=== PATIENT | male | born 1960 | race African-American/Black ===

== ENCOUNTER 2017-03-12 20:43 | Inpatient (IN) | payer OTHER ==
[2017-03-12 21:51] VITALS: BMI 23.6
--- NOTE | 2017-03-12 22:43 | HP ---
COWS - Scale Resting Pulse: 0= [place] 80 or Below Sweatin=Flushed/Facial Moisture Restless Observation: 5= Unable to Sit Still Pupil Size: 1= Pupils >than Normal Bone or Joint Aches: 4=Acute Joint/Muscle Pain Runny Nose/ Eye Tearin= Runny Nose/Eyes GI Upset > 30mins: 2= Nausea/Diarrhea Tremor Observation: 2= Slight Tremor Visible Yawning Observation: 1= 1-2x During Session Anxiety or Irritability: 2=Irritable/Anxious Goose Flesh Skin: 0=Smooth Skin COWS Score: 21 Admission ROS S - [facility] Chief Complaint: SEEKING DETOX TXMENT FOR HEROIN ADDICTION Allergies/Adverse Reactions: Allergies Allergy/AdvReac Type Severity Reaction Status Date / Time No Known Allergies Allergy Verified 03/12/17 22:37 History of Present Illness: 57 Y.O. MALE WITH OPIOID DEPENDENCE ADMITTED TO DETOX TXMENT. CLIENT STATES LAST HERE 20 YEARS AGO. LAST SUBSTANCE TXMENT DECADES AGO. SELF REFERRED. REPORTS LONGEST CLEAN TIME 15 YEARS RELAPSING 1 YEAR AGO. Exam Limitations: No Limitations - Ebola screening Have you traveled outside of the country in the last 21 days: No (n) Have you had contact with anyone from an Ebola affected area: No Have you been sick,other than usual withdrawal symptoms: No Do you have a fever: No - Review of Systems Constitutional: Chills, Loss of Appetite, Malaise, Night Sweats, Changes in sleep EENT: reports: Dental Problems (MISSING TEETH), Other (RINORRHEA) Respiratory: reports: No Symptoms reported Cardiac: reports: No Symptoms Reported GI: reports: Diarrhea, Abdominal cramping : reports: No Symptoms Reported Musculoskeletal: reports: Back Pain, Joint Pain Integumentary: reports: No Symptoms Reported Neuro: reports: No Symptoms reported Endocrine: reports: No Symptoms Reported Hematology: reports: No Symptoms Reported Psychiatric: reports: Anxious Other Systems: Reviewed and Negative Patient History - Patient Medical History Hx Anemia: No Hx Asthma: No Hx Chronic Obstructive Pulmonary Disease (COPD): No Hx Cancer: No Hx Cardiac Disorders: Yes (CARDIAC STENTS) Hx Congestive Heart Failure: No Hx Hypertension: No Hx Hypercholesterolemia: No Hx Pacemaker: No HX Cerebrovascular Accident: No Hx Seizures: No Hx Dementia: No Hx Diabetes: No Hx Gastrointestinal Disorders: No Hx Liver Disease: No Hx Genitourinary Disorders: No Hx Sexually Transmitted Disorders: No Hx Renal Disease (ESRD): No Hx Thyroid Disease: No Hx Human Immunodeficiency Virus (HIV): No Hx Hepatitis C: No Hx Depression: Yes (FEELS DEPRESSED) Hx Suicide Attempt: No Hx Bipolar Disorder: No Hx Schizophrenia: No Other Medical History: DENIES - Patient Surgical History Past Surgical History: Yes Hx Cardiac Surgery: Yes (CARDIAC STENTS) Hx Orthopedic Surgery: Yes (R HIP REPLACEMENT) Anesthesia Reaction: No - PPD History Previous Implant?: Yes Documented Results: Negative w/o proof Implanted On Prior [facility] Admission?: No PPD to be Administered?: Yes - Smoking Cessation Smoking history: Current every day smoker Have you smoked in the past 12 months: Yes Aproximately how many cigarettes per day: 20 Cigars Per Day: 0 Hx Chewing Tobacco Use: No Initiated information on smoking cessation: Yes 'Breaking Loose' booklet given: 03/12/17 - Substance & Tx. History Hx Alcohol Use: No Hx Substance Use: Yes Substance Use Type: Heroin Hx Substance Use Treatment: Yes ([facility]) - Substances Abused HEROIN Route: Injection Frequency: Daily Amount used: 7 BAGS Age of first use: 57 (4 MONTHS AGO) Date of Last Use: 03/10/17 PCP Route: Smoking Frequency: 1-3 times last 30 days Amount used: 1 BAG Age of first use: 29 Date of Last Use: 03/05/17 Family Disease History - Family Disease History Family History: Denies Admission Physical Exam [facility] - Vital Signs Vital Signs: Vital Signs - 24 hr 03/12/17 21:49 Temperature 98.1 F Pulse Rate 79 Respiratory 18 Rate Blood Pressure 142/77 - Physical General Appearance: Yes: Appropriately Dressed, Mild Distress, Tremorous, Anxious HEENTM: Yes: EOMI, Normocephalic, TROY, Pharynx Normal, Rhinorrhea Respiratory: Yes: Chest Non-Tender, Lungs Clear, Normal Breath Sounds, No Respiratory Distress, No Accessory Muscle Use Neck: Yes: No masses,lesions,Nodules, Supple, Trachea in good position Breast: Yes: Breast Exam Deferred Cardiology: Yes: Regular Rhythm, Regular Rate, S1, S2 Abdominal: Yes: Normal Bowel Sounds, Non Tender, Soft Genitourinary: Yes: Within Normal Limits Back: Yes: Normal Inspection Musculoskeletal: Yes: full range of Motion, Gait Steady Extremities: Yes: Normal Capillary Refill, Normal Range of Motion, Non-Tender, Tremors Neurological: Yes: injection molding machine setter II-XII NML intact, Fully Oriented, Alert, Motor Strength 5/5 Integumentary: Yes: Normal Color, Warm, Moist Lymphatic: Yes: Within Normal Limits - Diagnostic (1) Opioid dependence with withdrawal Current Visit: Yes Status: Chronic (2) Nicotine dependence Current Visit: Yes Status: Chronic Qualifiers: Nicotine product type: cigarettes Substance use status: uncomplicated Qualified Code(s): F17.210 - Nicotine dependence, cigarettes, uncomplicated Cleared for Admission [facility] - Detox or Rehab [facility] Level of Care: Medically Managed Detox Regimen/Protocol: Methadone [facility] Breath Alcohol Content Breath Alcohol Content: 0 Urine Drug Screen - Results Drug Screen Negative: No Urine Drug Screen Results: OPI-Opiates, PCP-Phencyclidine
[2017-03-12] MEDS ORDERED: MAGNESIUM HYDROX 2400MG/30ML ORAL SUSPENSION 30 ML CUP PO PRN (22:52)
[2017-03-12] MEDS ORDERED: MAG HYDROX/AL HYDROX/SIMETH 30 ML UNIT-DOSE CUP PO PRN (22:52)
[2017-03-12] MEDS ORDERED: IBUPROFEN 400 MG TABLET (FP) PO PRN (22:52)
[2017-03-12] MEDS ORDERED: MAGNESIUM CITRATE 300 ML BOTTLE PO PRN (22:52)
[2017-03-12] MEDS ORDERED: NICOTINE POLACRILEX 2 MG GUM BC PRN (22:52)
[2017-03-12] MEDS ORDERED: P-EPHED 60MG/TRIPROLIDI 2.5MG TABLET PO PRN (22:52)
[2017-03-12] MEDS ORDERED: LOPERAMIDE HCL 2 MG CAPSULE PO PRN (22:52)
[2017-03-12] MEDS ORDERED: diphenhydrAMINE HCL 50 MG CAPSULE PO PRN (22:52)
[2017-03-12] MEDS ORDERED: ACETAMINOPHEN 325 MG TABLET (FP) PO PRN (22:52)
[2017-03-12] MEDS ORDERED: MENTHOL/PHENOL 1 EACH UD MM PRN (22:52)
[2017-03-12] MEDS ORDERED: guaiFENesin/D-METHORPHAN HB 10 ML UNIT-DOSE CUPS PO PRN (22:52)
[2017-03-12] MEDS ORDERED: METHADONE HCL 10 MG TABLET (FOR DETOX USE ONLY) PO ONE ×2 (22:52→23:00)
[2017-03-12] MEDS: diazePAM 5 MG TABLET PO PRN (23:33)
[2017-03-13] MEDS: diazePAM 5 MG TABLET PO PRN ×3 (05:27→15:33)
[2017-03-13] MEDS ORDERED: ASPIRIN COATED 81 MG TABLET.EC PO SCH (10:00)
[2017-03-13] MEDS ORDERED: PRENATAL VITAMINS W/ FOLIC ACID TABLET (FP) PO SCH (10:00)
[2017-03-13] MEDS ORDERED: NICOTINE 21 MG/24 HOURS TOPICAL PATCH TD SCH (10:00)
[2017-03-13] MEDS ORDERED: METHADONE HCL 10 MG TABLET (FOR DETOX USE ONLY) PO ONE (10:00)
[2017-03-13 10:17] LABS: MCH 29.4 pg (25.7-33.7); MCHC 33.2 g/dl (32.0-35.9); MEAN CELL VOLUME 88.4 fl (80-96); MEAN PLT VOLUME 9.3 fl (7.5-11.1); PLATELET COUNT 242 K/MM3 (134-434); RDW 15.2 % (11.9-15.9); WHITE BLOOD COUNT 6.2 K/mm3 (4.0-10.0)
[2017-03-13 10:30] LABS: ALBUMIN 2.9 g/dl (3.4-5.0); ALK PHOS 72 U/L (45-117); ANION GAP 6 (8-16); BILIRUBIN,TOTAL 0.2 mg/dL (0.2-1.0); CALCIUM 8.7 mg/dL (8.5-10.1); CO2 28 mmol/L (21-32); COCKROFT - GAULT 99.87; CREATININE 0.9 mg/dL (0.7-1.3); GLUCOSE,RANDOM 95 mg/dL (74-106); SGOT/AST 34 U/L (15-37); SGPT/ALT 29 U/L (12-78); TOT PROT 5.8 g/dl (6.4-8.2)
--- NOTE | 2017-03-13 11:59 | EKG ---
Test Reason : Blood Pressure : / mmHG Vent. Rate : 061 BPM Atrial Rate : 061 BPM P-R Int : 128 ms QRS Dur : 102 ms QT Int : 410 ms P-R-T Axes : 047 -43 065 degrees QTc Int : 412 ms NORMAL SINUS RHYTHM LEFT AXIS DEVIATION ABNORMAL ECG NO PREVIOUS ECGS AVAILABLE Confirmed by ELLEN CARO, ROD ([id number]) on 03/13/2017 11:58:30 AM Referred By: Confirmed By:ROD HUGHES MD
--- NOTE | 2017-03-13 12:14 | PN ---
S COWS - Scale Resting Pulse: 0= [place] 80 or Below Sweatin= Chills/Flushing Restless Observation: 3= Extraneous Movement Pupil Size: 2= Moderately Dilated Bone or Joint Aches: 4=Acute Joint/Muscle Pain Runny Nose/ Eye Tearin= Nasal Congestion GI Upset > 30mins: 1= Stomach Cramp Tremor Observation of Outstretched Hands: 1= Tremor [place], Not Seen Yawning Observation: 1= 1-2x During Session Anxiety or Irritability: 2=Irritable/Anxious Goose Flesh Skin: 0=Smooth Skin COWS Score: 16 S Progress Note (SOAP) Subjective: ANXIETY,SWEATS,INTERMITTENT SLEEP. Objective: 03/13/17 12:14 Vital Signs Temperature 97.0 F L 03/13/17 09:35 Pulse Rate 71 03/13/17 09:35 Respiratory Rate 18 03/13/17 09:35 Blood Pressure 124/79 03/13/17 09:35 O2 Sat by Pulse Oximetry (%) Laboratory Last Values WBC 6.2 K/mm3 (4.0-10.0) 03/13/17 07:00 RBC 3.94 M/mm3 (4.00-5.60) L 03/13/17 07:00 Hgb 11.6 GM/dL (11.7-16.9) L 03/13/17 07:00 Hct 34.9 % (35.4-49) L 03/13/17 07:00 MCV 88.4 fl (80-96) 03/13/17 07:00 MCHC 33.2 g/dl (32.0-35.9) 03/13/17 07:00 RDW 15.2 % (11.9-15.9) 03/13/17 07:00 Plt Count 242 K/MM3 (134-434) 03/13/17 07:00 MPV 9.3 fl (7.5-11.1) 03/13/17 07:00 Sodium 142 mmol/L (136-145) 03/13/17 07:00 Potassium 4.0 mmol/L (3.5-5.1) 03/13/17 07:00 Chloride 108 mmol/L (98-107) H 03/13/17 07:00 Carbon Dioxide 28 mmol/L (21-32) 03/13/17 07:00 Anion Gap 6 (8-16) L 03/13/17 07:00 BUN 17 mg/dL (7-18) 03/13/17 07:00 Creatinine 0.9 mg/dL (0.7-1.3) 03/13/17 07:00 Creat Clearance w eGFR > 60 (>60) 03/13/17 07:00 Random Glucose 95 mg/dL (74-106) 03/13/17 07:00 Calcium 8.7 mg/dL (8.5-10.1) 03/13/17 07:00 Total Bilirubin 0.2 mg/dL (0.2-1.0) 03/13/17 07:00 AST 34 U/L (15-37) 03/13/17 07:00 ALT 29 U/L (12-78) 03/13/17 07:00 Alkaline Phosphatase 72 U/L (45-117) 03/13/17 07:00 Total Protein 5.8 g/dl (6.4-8.2) L 03/13/17 07:00 Albumin 2.9 g/dl (3.4-5.0) L 03/13/17 07:00 Assessment: 03/13/17 12:14 WITHDRAWAL SX Plan: CONTINUE DETOX
--- NOTE | 2017-03-13 12:26 | CONSULT ---
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 Substance Abuse History: - Smoking Cessation. Smoking history: Current every day smoker. Have you smoked in the past 12 months: Yes. Aproximately how many cigarettes per day: 20. Cigars Per Day: 0. Hx Chewing Tobacco Use: No. Initiated information on smoking cessation: Yes. 'Breaking Loose' booklet given : 03/12/17. - Substance & Tx. History. Hx Alcohol Use: No. Hx Substance Use: Yes. Substance Use Type: Heroin. Hx Substance Use Treatment: Yes ([facility]). - Substances Abused. HEROIN. Route: Injection. Frequency: Daily. Amount used: 7 BAGS. Age of first use: 57 (4 MONTHS AGO). Date of Last Use: . PCP. Route: Smoking. Frequency: 1-3 times last 30 days. Amount used: 1 BAG. Age of first use: 29. Date of Last Use: 03/05/17. Confirmed by patient. Medical History: Arthritis,right hip replacement and a history of cardiac stents. Psychiatric History: Patient denies. Physical/Sexual Abuse/Trauma History: Patient denies. Additional Comment: Urine Drug Screen Results: OPI-Opiates, PCP- Phencyclidine.Noted. Mental Status Exam - Mental Status Exam Alert and Oriented to: Time, Place, Person Cognitive Function: Good Patient Appearance: Well Groomed Mood: Withdrawn Affect: Normal Range Patient Behavior: Fatigued, Cooperative Speech Pattern: Clear Voice Loudness: Normal Thought Process: Goal Oriented Thought Disorder: Not Present Hallucinations: Denies Suicidal Ideation: Denies Homicidal Ideation: Denies Insight/Judgement: Poor Sleep: Poorly, Difficulty falling asleep Appetite: Good Muscle strength/Tone: Normal Gait/Station: Normal Psychiatric Findings - Problem List ([place] 1, 2,3) (1) Opioid dependence with withdrawal Current Visit: Yes Status: Chronic (2) Nicotine dependence Current Visit: Yes Status: Acute Qualifiers: Nicotine product type: cigarettes Substance use status: uncomplicated Qualified Code(s): F17.210 - Nicotine dependence, cigarettes, uncomplicated (3) PCP (phencyclidine) abuse Current Visit: Yes Status: Acute (4) Insomnia Current Visit: Yes Status: Acute - Initial Treatment Plan Initial Treatment Plan: Psychoeducation.Detoxification.Insomnia is addressed with benadryl 50 mg po hs (patient's request).Side effects/benefits discussed with patient.He agrees with this careplan.Observation.
[2017-03-13 17:42] VITALS: BP 108/60; PULSE 66; TEMP 97.6
[2017-03-13 18:20] LABS: URINE APPEARANCE CLEAR; URINE BILIRUBIN NEGATIVE (NEGATIVE); URINE BLOOD NEGATIVE (NEGATIVE); URINE COLOR YELLOW; URINE GLUCOSE (UA) NEGATIVE (NEGATIVE); URINE KETONE NEGATIVE (NEGATIVE); URINE LEUK ESTERASE NEGATIVE (NEGATIVE); URINE NITRITE NEGATIVE (NEGATIVE); URINE PROTEIN NEGATIVE (NEGATIVE); URINE UROBILINOGEN NEGATIVE E.U./dl (0.2-1.0)
[2017-03-13] MEDS ORDERED: THIAMINE HCL 100 MG TABLET (FP) PO SCH (22:00)
--- NOTE | 2017-03-14 00:15 | DS ---
[facility] Detox Discharge Summary Admission Date: 03/12/17 Discharge Date: 03/13/17 - History Present History: Opioid Dependence Pertinent Past History: PATIENT INSISTS TO LEAVE THE UNIT REFUSES WAIT FACE TO FACE WITH PROVIDER - Physical Exam Results Vital Signs: Vital Signs Temperature 97.6 F 03/13/17 17:41 Pulse Rate 66 03/13/17 17:41 Respiratory Rate 18 03/13/17 17:41 Blood Pressure 108/60 03/13/17 17:41 O2 Sat by Pulse Oximetry (%) Pertinent Admission Physical Exam Findings: withdrawal sx Laboratory Last Values WBC 6.2 K/mm3 (4.0-10.0) 03/13/17 07:00 RBC 3.94 M/mm3 (4.00-5.60) L 03/13/17 07:00 Hgb 11.6 GM/dL (11.7-16.9) L 03/13/17 07:00 Hct 34.9 % (35.4-49) L 03/13/17 07:00 MCV 88.4 fl (80-96) 03/13/17 07:00 MCHC 33.2 g/dl (32.0-35.9) 03/13/17 07:00 RDW 15.2 % (11.9-15.9) 03/13/17 07:00 Plt Count 242 K/MM3 (134-434) 03/13/17 07:00 MPV 9.3 fl (7.5-11.1) 03/13/17 07:00 Sodium 142 mmol/L (136-145) 03/13/17 07:00 Potassium 4.0 mmol/L (3.5-5.1) 03/13/17 07:00 Chloride 108 mmol/L (98-107) H 03/13/17 07:00 Carbon Dioxide 28 mmol/L (21-32) 03/13/17 07:00 Anion Gap 6 (8-16) L 03/13/17 07:00 BUN 17 mg/dL (7-18) 03/13/17 07:00 Creatinine 0.9 mg/dL (0.7-1.3) 03/13/17 07:00 Creat Clearance w eGFR > 60 (>60) 03/13/17 07:00 Random Glucose 95 mg/dL (74-106) 03/13/17 07:00 Calcium 8.7 mg/dL (8.5-10.1) 03/13/17 07:00 Total Bilirubin 0.2 mg/dL (0.2-1.0) 03/13/17 07:00 AST 34 U/L (15-37) 03/13/17 07:00 ALT 29 U/L (12-78) 03/13/17 07:00 Alkaline Phosphatase 72 U/L (45-117) 03/13/17 07:00 Total Protein 5.8 g/dl (6.4-8.2) L 03/13/17 07:00 Albumin 2.9 g/dl (3.4-5.0) L 03/13/17 07:00 Urine Color Yellow 03/13/17 13:00 Urine Appearance Clear 03/13/17 13:00 Urine pH 6.0 (5.0-8.0) 03/13/17 13:00 Ur Specific [place] 1.020 (1.005-1.025) 03/13/17 13:00 Urine Protein Negative (NEGATIVE) 03/13/17 13:00 Urine Glucose (UA) Negative (NEGATIVE) 03/13/17 13:00 Urine Ketones Negative (NEGATIVE) 03/13/17 13:00 Urine Blood Negative (NEGATIVE) 03/13/17 13:00 Urine Nitrite Negative (NEGATIVE) 03/13/17 13:00 Urine Bilirubin Negative (NEGATIVE) 03/13/17 13:00 Urine Urobilinogen Negative E.U./dl (0.2-1.0) 03/13/17 13:00 Ur Leukocyte Esterase Negative (NEGATIVE) 03/13/17 13:00 RPR Titer Nonreactive (NONREACTIVE) 03/13/17 07:00 lab noted - Treatment Hospital Course: Detox Protocol Followed, Responded well - Medication Discharge Medications: Ambulatory Orders Aspirin [ASA -] 81 mg PO DAILY 03/12/17 - Diagnosis (1) Opioid dependence with withdrawal Status: Acute - AMA Did Patient Leave Against Medical Advice: Yes
[2017-03-14] MEDS ORDERED: METHADONE HCL 5 MG TABLET (FOR DETOX USE ONLY) PO ONE (10:00)
[2017-03-15] MEDS ORDERED: METHADONE HCL 5 MG TABLET (FOR DETOX USE ONLY) PO ONE (10:00)
[2017-03-16] MEDS ORDERED: METHADONE HCL 10 MG TABLET (FOR DETOX USE ONLY) PO ONE (10:00)
[2017-03-17] MEDS ORDERED: METHADONE HCL 5 MG TABLET (FOR DETOX USE ONLY) PO ONE (06:00)
== END 2017-03-13 18:28 | disposition left against medical advice (07) | DRG 770 ==
LOC: YASAS 20:43 → Y3N 22:58
PROVIDERS: ADMIT Internal Medicine; ATTEND Internal Medicine
PROC: HZ2ZZZZ Detoxification Services for Substance Abuse Treatment (ICD-10-PCS; principal; 2017-03-12)
DX: F11.23 Opioid dependence with withdrawal (principal); F16.10 Hallucinogen abuse, uncomplicated; F17.210 Nicotine dependence, cigarettes, uncomplicated; G47.00 Insomnia, unspecified; M19.90 Unspecified osteoarthritis, unspecified site; Z96.641 Presence of right artificial hip joint; Z95.5 Presence of coronary angioplasty implant and graft
CPT/HCPCS: 36415; 80053; 81003; 85027; 86593; 86803; 93005; 93010

== ENCOUNTER 2019-07-20 14:32 | Inpatient (IN) | payer OTHER ==
[2019-07-20 18:28] VITALS: BMI 27.4
--- NOTE | 2019-07-20 19:20 | HP ---
COWS - Scale Resting Pulse: 1= [place] 81-100 Sweatin= Chills/Flushing Restless Observation: 1= Difficult to Sit Still Pupil Size: 0= Normal to Room Light Bone or Joint Aches: 1= Mild Discomfort Runny Nose/ Eye Tearin= Runny Nose/Eyes GI Upset > 30mins: 5=Frequent Vomit/Diarrhea Tremor Observation: 1= Tremor [place], Not Seen Yawning Observation: 0= None Anxiety or Irritability: 2=Irritable/Anxious Goose Flesh Skin: 0=Smooth Skin COWS Score: 14 CIWA Score - Admission Criteria OASAS Guidelines: Admission for Medically Managed Detox: Requires at least one of the followin. CIWA greater than 12 2. Seizures within the past 24 hours 3. Delirium tremens within the past 24 hours 4. Hallucinations within the past 24 hours 5. Acute intervention needed for co occurring medical disorder 6. Acute intervention needed for co occurring psychiatric disorder 7. Severe withdrawal that cannot be handled at a lower level of care (continued vomiting, continued diarrhea, abnormal vital signs) requiring intravenous medication and/or fluids 8. Admitting History and Physical - Smoking History Smoking history: Current every day smoker Have you smoked in the past 12 months: Yes Aproximately how many cigarettes per day: 20 - Alcohol/Substance Use Hx Alcohol Use: No Admission ROS [facility] - [facility] Chief Complaint: "detox for heroin" Allergies/Adverse Reactions: Allergies Allergy/AdvReac Type Severity Reaction Status Date / Time No Known Allergies Allergy Verified 07/20/19 18:22 History of Present Illness: 59 year old male with a past medical history of coronary artery disease s/p one stent 4 years ago, L knee replacement 7 weeks ago, R hip replacement 2 years ago , presents for heroin detox. Last detox 8 months ago [facility]. Went to rehab after that. Relapsed 2 weeks ago. Used to be on dilaudid and oxycodone while in the hospital for his surgeries, made him go to heroin. Previously took suboxone, but had to be on oxycodones while in the hospital. Reports that he does not want to do methadone. Currently in drug court. In an outpatient rehab program. Heroin: 2 bags every day, last used 2 days ago. 10 bags total since relapse. Starting to feel symptoms of nausea, vomiting, sweating, tremors. Never OD'd. Never had a seizure. Only sniffs, never injected. Took suboxone yesterday off the street. Alcohol: no alcohol Cigarettes: 1 pack a day, 30 years Family: 3 boys, supportive Living Situation: [facility], private home Work: Used to work at [employer] - Ebola screening Have you traveled outside of the country in the last 21 days: No (N) Have you had contact with anyone from an Ebola affected area: No Do you have a fever: No - Review of Systems Constitutional: Chills, Diaphoresis, Loss of Appetite EENT: reports: Blurred Vision, Nose Congestion Respiratory: reports: No Symptoms reported Cardiac: reports: Lightheadedness GI: reports: Diarrhea, Nausea, Vomiting : reports: No Symptoms Reported Musculoskeletal: reports: Back Pain, Muscle Pain Integumentary: reports: No Symptoms Reported Neuro: reports: Headache Endocrine: reports: No Symptoms Reported Hematology: reports: No Symptoms Reported Psychiatric: reports: Judgement Intact, Mood/Affect Appropiate, Orientated x3, Agitated, Anxious, Depressed Patient History - Patient Medical History Hx Anemia: No Hx Asthma: No Hx Chronic Obstructive Pulmonary Disease (COPD): No Hx Cancer: No Hx Cardiac Disorders: Yes (CARDIAC STENTS) Hx Congestive Heart Failure: No Hx Hypertension: No Hx Hypercholesterolemia: No Hx Pacemaker: No HX Cerebrovascular Accident: No Hx Seizures: No Hx Dementia: No Hx Diabetes: No Hx Gastrointestinal Disorders: No Hx Liver Disease: No Hx Genitourinary Disorders: No Hx Sexually Transmitted Disorders: No Hx Renal Disease (ESRD): No Hx Thyroid Disease: No Hx Human Immunodeficiency Virus (HIV): No Hx Hepatitis C: No Hx Depression: Yes (FEELS DEPRESSED) Hx Suicide Attempt: No Hx Bipolar Disorder: No Hx Schizophrenia: No - Patient Surgical History Past Surgical History: Yes Hx Neurologic Surgery: No Hx Cataract Extraction: No Hx Cardiac Surgery: Yes (CARDIAC STENTS) Hx Lung Surgery: No Hx Breast Surgery: No Hx Breast Biopsy: No Hx Abdominal Surgery: No Hx Appendectomy: No Hx Cholecystectomy: No Hx Genitourinary Surgery: No Hx Section: No Hx Orthopedic Surgery: Yes (R HIP REPLACEMENT) Anesthesia Reaction: No - PPD History Date: 03/14/17 - Smoking Cessation Smoking history: Current every day smoker Have you smoked in the past 12 months: Yes Aproximately how many cigarettes per day: 20 Cigars Per Day: 0 Hx Chewing Tobacco Use: No Initiated information on smoking cessation: Yes 'Breaking Loose' booklet given: 07/20/19 - Substances abused Heroin Substance route: Inhalation Frequency: Daily Amount used: 2bags/day Age of first use: 59 Date of last use: 07/18/19 Admission Physical Exam [facility] - Vital Signs Vital Signs: Vital Signs - 24 hr 07/20/19 18:23 Temperature 98.1 F Pulse Rate 83 Respiratory 16 Rate Blood Pressure 132/81 - Physical General Appearance: Yes: No Apparent Distress, Nourished HEENTM: Yes: Hearing grossly Normal, Normal ENT Inspection Respiratory: Yes: Chest Non-Tender, Lungs Clear Neck: Yes: Within Normal Limits Breast: Yes: Within Normal Limits Cardiology: Yes: Regular Rhythm, Regular Rate Abdominal: Yes: Normal Bowel Sounds, Non Tender, Flat Musculoskeletal: Yes: Gait Steady Extremities: Yes: Within Normal Limits, Normal Capillary Refill, Normal Inspection Neurological: Yes: food service lead II-XII NML intact, Fully Oriented, Alert, Motor Strength 5/5 Integumentary: Yes: Normal Color, Dry, Warm Cleared for Admission [facility] - Detox or Rehab [facility] Level of Care: Medically Supervised Breathalyzer - Breathalyzer Breathalyzer: 0 Urine Drug Screen - Test Device Lot number: [id number] Expiration date: 03/13/21 - Control Is test valid?: Yes - Results Drug screen NEGATIVE: No Urine drug screen results: GREGORIA-Cocaine, FEN-Fentanyl, MOP-Opiates, OXY-Oxycodone , BUP-Suboxone Inpatient Rehab Admission - Rehab Decision to Admit Inpatient rehab admission?: No
--- NOTE | 2019-07-20 19:57 | PN ---
Teaching Attending Note Name of Resident: Vineet Maldonado ATTENDING PHYSICIAN STATEMENT I saw and evaluated the patient. I reviewed the resident's note and discussed the case with the resident. I agree with the resident's findings and plan as documented. SUBJECTIVE: 59 yo with knee replacement and back pain, s/p stent for CAD, sent here by legal for having heroin in his urine. Pt states he used heroin b/c they stopped his pain meds after knee surgery without a taper. Pt had been on suboxone 24mg/day stopped at time of surgery. Would like to restart Suboxone OBJECTIVE: Vital Signs - 24 hr 07/20/19 18:23 Temperature 98.1 F Pulse Rate 83 Respiratory 16 Rate Blood Pressure 132/81 ASSESSMENT AND PLAN: Will start methadone taper while here and pt to be seen by PCP for further management of his pain/OUD.
[2019-07-20] MEDS ORDERED: ACETAMINOPHEN 325 MG TABLET (FP) PO PRN ×2 (20:01)
[2019-07-20] MEDS ORDERED: BISMUTH SUBSALICYLATE 524 MG/30 ML UD PO PRN (20:01)
[2019-07-20] MEDS ORDERED: MENTHOL/PHENOL 1 EACH UD MM PRN (20:01)
[2019-07-20] MEDS ORDERED: METHOCARBAMOL 500 MG TABLET PO PRN (20:01)
[2019-07-20] MEDS ORDERED: cloNIDine HCL 0.1 MG TABLET PO PRN (20:01)
[2019-07-20] MEDS ORDERED: MAGNESIUM CITRATE 300 ML BOTTLE PO PRN (20:01)
[2019-07-20] MEDS ORDERED: hydrOXYzine PAMOATE 25 MG CAPSULE (FP) PO PRN (20:01)
[2019-07-20] MEDS ORDERED: METHADONE HCL 10 MG TABLET (FOR DETOX USE ONLY) PO ONE (20:01)
[2019-07-20] MEDS ORDERED: MAG HYDROX/AL HYDROX/SIMETH 30 ML UNIT-DOSE CUP PO PRN (20:01)
[2019-07-20] MEDS ORDERED: IBUPROFEN 400 MG TABLET (FP) PO PRN (20:01)
[2019-07-20] MEDS ORDERED: MAGNESIUM HYDROX 2400MG/30ML ORAL SUSPENSION 30 ML CUP PO PRN (20:01)
[2019-07-20] MEDS: THIAMINE HCL 100 MG TABLET (FP) PO SCH (21:06)
[2019-07-21] MEDS ORDERED: METHADONE HCL 5 MG TABLET (FOR DETOX USE ONLY) ONE (09:15)
[2019-07-21] MEDS ORDERED: METHADONE HCL 10 MG TABLET (FOR DETOX USE ONLY) ONE (09:15)
[2019-07-21] MEDS: PRENATAL VITAMINS W/ FOLIC ACID TABLET (FP) PO SCH (09:42)
[2019-07-21] MEDS: ASPIRIN 81 MG CHEWABLE TABLETS PO SCH (09:43)
[2019-07-21] MEDS ORDERED: METHADONE (DETOX) 20 MG, METHADONE (DETOX) 5 MG PO ONE (10:00)
[2019-07-21 10:09] LABS: BILIRUBIN,TOTAL 0.3 mg/dL (0.2-1); BLOOD UREA NITROGEN 15.6 mg/dL (7-18); CALCIUM 8.9 mg/dL (8.5-10.1); CREATININE 1.1 mg/dL (0.55-1.3); POTASSIUM 4.4 mmol/L (3.5-5.1); TOT PROT 6.2 g/dl (6.4-8.2)
[2019-07-21 10:17] LABS: HEMATOCRIT 33.3 % (35.4-49); HEMOGLOBIN 10.8 GM/dL (11.7-16.9); MCH 28.8 pg (25.7-33.7); MCHC 32.6 g/dl (32.0-35.9); MEAN CELL VOLUME 88.5 fl (80-96); MEAN PLT VOLUME 9.2 fl (7.5-11.1); PLATELET COUNT 285 K/MM3 (134-434); RBC 3.76 M/mm3 (4.00-5.60); RDW 15.9 % (11.9-15.9); WHITE BLOOD COUNT 5.3 K/mm3 (4.0-10.0)
[2019-07-21] MEDS: NICOTINE 21 MG/24 HOURS TOPICAL PATCH TD SCH (11:36)
--- NOTE | 2019-07-21 12:20 | EKG ---
Test Reason : Blood Pressure : / mmHG Vent. Rate : 066 BPM Atrial Rate : 066 BPM P-R Int : 130 ms QRS Dur : 098 ms QT Int : 390 ms P-R-T Axes : 042 -33 061 degrees QTc Int : 408 ms NORMAL SINUS RHYTHM LEFT AXIS DEVIATION ABNORMAL ECG WHEN COMPARED WITH ECG OF 12-MAR-2017 22:37, NO SIGNIFICANT CHANGE WAS FOUND Confirmed by Goyo Mejia ([id number]) on 07/21/2019 12:19:48 PM Referred By: Confirmed By:Goyo Mejia
--- NOTE | 2019-07-21 15:48 | PN ---
BHS COWS - Scale Resting Pulse: 0= [place] 80 or Below Sweatin= Chills/Flushing Restless Observation: 1= Difficult to Sit Still Pupil Size: 0= Normal to Room Light Bone or Joint Aches: 2= Severe Diffuse Aches Runny Nose/ Eye Tearin= Nasal Congestion GI Upset > 30mins: 0= None Tremor Observation of Outstretched Hands: 0= None Yawning Observation: 1= 1-2x During Session Anxiety or Irritability: 2=Irritable/Anxious Goose Flesh Skin: 3=Piloerection COWS Score: 11 BHS Progress Note (SOAP) Subjective: Anxious, Sweating, Body Aches. Objective: PATIENT A & O X 3, OBSERVED AMBULATING ON DETOX UNIT UNASSISTED. IN NO ACUTE DISTRESS. 07/21/19 15:47 Vital Signs Temperature 97.9 F 07/21/19 13:36 Pulse Rate 56 L 07/21/19 13:36 Respiratory Rate 18 07/21/19 13:36 Blood Pressure 128/79 07/21/19 13:36 O2 Sat by Pulse Oximetry (%) Laboratory Tests 07/21/19 07/21/19 07/21/19 08:00 08:00 08:00 WBC 5.3 RBC 3.76 L Hgb 10.8 L Hct 33.3 L MCV 88.5 MCH 28.8 MCHC 32.6 RDW 15.9 Plt Count 285 MPV 9.2 Sodium 141 Potassium 4.4 Chloride 109 H Carbon Dioxide 27 Anion Gap 5 L BUN 15.6 Creatinine 1.1 Est GFR (CKD-EPI)AfAm 84.12 Est GFR (CKD-EPI)NonAf 72.58 Random Glucose 97 Calcium 8.9 Total Bilirubin 0.3 AST 13 L ALT 12 L Alkaline Phosphatase 81 Total Protein 6.2 L Albumin 3.0 L RPR Titer Nonreactive LABS NOTED. Assessment: 07/21/19 15:47 WITHDRAWAL SYMPTOMS. ANEMIA. Plan: CONTINUE DETOX. PATIENT IS CURRENTLY RECEIVING DAILY MVI CONTAINING B VITAMINS AND IRON WHILE ADMITTED FOR DETOX.
[2019-07-21] MEDS: THIAMINE HCL 100 MG TABLET (FP) PO SCH (21:59)
[2019-07-21] MEDS: MELATONIN 5 MG TABLETS PO PRN (21:59)
[2019-07-22] MEDS ORDERED: METHADONE HCL 10 MG TABLET (FOR DETOX USE ONLY) PO ONE (10:00)
[2019-07-22] MEDS: PRENATAL VITAMINS W/ FOLIC ACID TABLET (FP) PO SCH (10:37)
[2019-07-22] MEDS: ASPIRIN 81 MG CHEWABLE TABLETS PO SCH (10:37)
[2019-07-22] MEDS: NICOTINE 21 MG/24 HOURS TOPICAL PATCH TD SCH (10:37)
--- NOTE | 2019-07-22 12:14 | PN ---
BHS Progress Note (SOAP) Subjective: c/o of interrupted sleep chills, sweats Objective: 07/22/19 12:12 Vital Signs Temperature 97.5 F L 07/22/19 09:09 Pulse Rate 58 L 07/22/19 09:09 Respiratory Rate 18 07/22/19 09:09 Blood Pressure 124/73 07/22/19 09:09 O2 Sat by Pulse Oximetry (%) Laboratory Last Values WBC 5.3 K/mm3 (4.0-10.0) 07/21/19 08:00 RBC 3.76 M/mm3 (4.00-5.60) L 07/21/19 08:00 Hgb 10.8 GM/dL (11.7-16.9) L 07/21/19 08:00 Hct 33.3 % (35.4-49) L 07/21/19 08:00 MCV 88.5 fl (80-96) 07/21/19 08:00 MCH 28.8 pg (25.7-33.7) 07/21/19 08:00 MCHC 32.6 g/dl (32.0-35.9) 07/21/19 08:00 RDW 15.9 % (11.9-15.9) 07/21/19 08:00 Plt Count 285 K/MM3 (134-434) 07/21/19 08:00 MPV 9.2 fl (7.5-11.1) 07/21/19 08:00 Sodium 141 mmol/L (136-145) 07/21/19 08:00 Potassium 4.4 mmol/L (3.5-5.1) 07/21/19 08:00 Chloride 109 mmol/L (98-107) H 07/21/19 08:00 Carbon Dioxide 27 mmol/L (21-32) 07/21/19 08:00 Anion Gap 5 MMOL/L (8-16) L 07/21/19 08:00 BUN 15.6 mg/dL (7-18) 07/21/19 08:00 Creatinine 1.1 mg/dL (0.55-1.3) 07/21/19 08:00 Est GFR (CKD-EPI)AfAm 84.12 07/21/19 08:00 Est GFR (CKD-EPI)NonAf 72.58 07/21/19 08:00 Random Glucose 97 mg/dL (74-106) 07/21/19 08:00 Calcium 8.9 mg/dL (8.5-10.1) 07/21/19 08:00 Total Bilirubin 0.3 mg/dL (0.2-1) 07/21/19 08:00 AST 13 U/L (15-37) L 07/21/19 08:00 ALT 12 U/L (13-61) L 07/21/19 08:00 Alkaline Phosphatase 81 U/L (45-117) 07/21/19 08:00 Total Protein 6.2 g/dl (6.4-8.2) L 07/21/19 08:00 Albumin 3.0 g/dl (3.4-5.0) L 07/21/19 08:00 RPR Titer Nonreactive (NONREACTIVE) 07/21/19 08:00 labs reviewed Assessment: 07/22/19 12:13 Aox3 no acute distress no adventitious breath sounds full ROM no gait disturbance withdrawal sx Plan: increase fluids continue detox continue to monitor
[2019-07-22] MEDS: THIAMINE HCL 100 MG TABLET (FP) PO SCH (22:24)
[2019-07-22] MEDS: MELATONIN 5 MG TABLETS PO PRN (22:36)
[2019-07-23] MEDS ORDERED: METHADONE HCL 10 MG TABLET (FOR DETOX USE ONLY) ONE (09:05)
[2019-07-23] MEDS ORDERED: METHADONE HCL 5 MG TABLET (FOR DETOX USE ONLY) ONE (09:06)
[2019-07-23] MEDS ORDERED: METHADONE (DETOX) 10 MG, METHADONE (DETOX) 5 MG PO ONE (10:00)
[2019-07-23] MEDS: ASPIRIN 81 MG CHEWABLE TABLETS PO SCH (10:43)
[2019-07-23] MEDS: NICOTINE 21 MG/24 HOURS TOPICAL PATCH TD SCH (10:43)
[2019-07-23] MEDS: PRENATAL VITAMINS W/ FOLIC ACID TABLET (FP) PO SCH (10:43)
[2019-07-23] MEDS: DOCUSATE SODIUM 100 MG CAPSULE (FP) PO SCH ×2 (15:20→22:03)
[2019-07-23] MEDS: SENNOSIDES 8.6MG TABLET (FP) PO SCH ×2 (15:22→22:03)
--- NOTE | 2019-07-23 16:49 | PN ---
[facility] COWS - Scale Resting Pulse: 0= NM 80 or Below Sweatin= No chills or Flushing Restless Observation: 1= Difficult to Sit Still Pupil Size: 0= Normal to Room Light Bone or Joint Aches: 1= Mild Discomfort Runny Nose/ Eye Tearin= None GI Upset > 30mins: 1= Stomach Cramp (Constipation.) Tremor Observation of Outstretched Hands: 0= None Yawning Observation: 1= 1-2x During Session Anxiety or Irritability: 2=Irritable/Anxious Goose Flesh Skin: 0=Smooth Skin COWS Score: 6 BHS Progress Note (SOAP) Subjective: Constipation, Body Aches (Improving), Anxious. Objective: PATIENT A & O X 3, OBSERVED AMBULATING ON DETOX UNIT UNASSISTED. IN NO ACUTE DISTRESS. 07/23/19 16:47 Vital Signs Temperature 97.3 F L 07/23/19 14:13 Pulse Rate 54 L 07/23/19 14:13 Respiratory Rate 19 07/23/19 14:13 Blood Pressure 107/74 07/23/19 14:13 O2 Sat by Pulse Oximetry (%) Laboratory Tests 07/21/19 07/21/19 07/21/19 08:00 08:00 08:00 WBC 5.3 RBC 3.76 L Hgb 10.8 L Hct 33.3 L MCV 88.5 MCH 28.8 MCHC 32.6 RDW 15.9 Plt Count 285 MPV 9.2 Sodium 141 Potassium 4.4 Chloride 109 H Carbon Dioxide 27 Anion Gap 5 L BUN 15.6 Creatinine 1.1 Est GFR (CKD-EPI)AfAm 84.12 Est GFR (CKD-EPI)NonAf 72.58 Random Glucose 97 Calcium 8.9 Total Bilirubin 0.3 AST 13 L ALT 12 L Alkaline Phosphatase 81 Total Protein 6.2 L Albumin 3.0 L RPR Titer Nonreactive LABS NOTED. Assessment: 07/23/19 16:48 WITHDRAWAL SYMPTOMS. ANEMIA. Plan: CONTINUE DETOX. PATIENT REPORTS THAT CURRENT WITHDRAWAL SYMPTOMS ARE TOLERABLE AND THAT HE FEELS WELL OVERALL. AT PATIENT'S REQUEST, HE WILL LIKELY BE DISCHARGED TOMORROW TO GO TO REHAB.
[2019-07-23] MEDS: THIAMINE HCL 100 MG TABLET (FP) PO SCH (22:03)
[2019-07-23] MEDS: MELATONIN 5 MG TABLETS PO PRN (22:03)
[2019-07-24] MEDS: DOCUSATE SODIUM 100 MG CAPSULE (FP) PO SCH (05:55)
[2019-07-24] MEDS ORDERED: METHADONE HCL 10 MG TABLET (FOR DETOX USE ONLY) PO ONE ×2 (06:00→10:00)
[2019-07-24 06:09] VITALS: BP 113/65; PULSE 55; TEMP 97.2
--- NOTE | 2019-07-24 10:15 | DS ---
[facility] Detox Discharge Summary Admission Date: 07/20/19 Discharge Date: 07/24/19 - History Present History: Cocaine Dependence, Opioid Dependence - Physical Exam Results Vital Signs: Vital Signs Temperature 97.2 F L 07/24/19 06:08 Pulse Rate 55 L 07/24/19 06:08 Respiratory Rate 18 07/24/19 06:08 Blood Pressure 113/65 07/24/19 06:08 O2 Sat by Pulse Oximetry (%) - Treatment Hospital Course: Detox Protocol Followed, Detoxed Safely, Responded well, Discharged Condition Good - Medication Discharge Medications: Ambulatory Orders Aspirin [ASA -] 81 mg PO DAILY 03/12/17 - Diagnosis (1) Nicotine dependence Status: Chronic Qualifiers: Nicotine product type: cigarettes Substance use status: uncomplicated Qualified Code(s): F17.210 - Nicotine dependence, cigarettes, uncomplicated (2) Opioid dependence with withdrawal Status: Chronic (3) Anemia Status: Chronic Qualifiers: Anemia type: unspecified type Qualified Code(s): D64.9 - Anemia, unspecified - AMA Did Patient Leave Against Medical Advice: No
[2019-07-25] MEDS ORDERED: METHADONE HCL 5 MG TABLET (FOR DETOX USE ONLY) PO ONE (06:00)
== END 2019-07-24 07:49 | disposition home or self-care (01) | DRG 773 ==
LOC: YASAS 14:32 → Y3N 20:15
PROVIDERS: ADMIT Allergy & Immunology; ATTEND Allergy & Immunology
PROC: HZ2ZZZZ Detoxification Services for Substance Abuse Treatment (ICD-10-PCS; principal; 2019-07-20)
DX: F11.23 Opioid dependence with withdrawal (principal); F14.20 Cocaine dependence, uncomplicated; F17.210 Nicotine dependence, cigarettes, uncomplicated; F32.9 Major depressive disorder, single episode, unspecified; D64.9 Anemia, unspecified; I25.10 Atherosclerotic heart disease of native coronary artery without angina pectoris; Z95.5 Presence of coronary angioplasty implant and graft; Z96.652 Presence of left artificial knee joint; Z96.641 Presence of right artificial hip joint
CPT/HCPCS: 36415; 80053; 85027; 86593; 93005; 93010

== ENCOUNTER 2021-07-02 10:30 | Inpatient (IN) | payer OTHER ==
[2021-07-02 11:18] VITALS: BMI 25.2
[2021-07-02] MEDS ORDERED: cloNIDine HCL 0.1 MG TABLET PO PRN (15:29)
[2021-07-02] MEDS ORDERED: NICOTINE 10 MG CARTRIDGE (INHALER) IH PRN (15:29)
[2021-07-02] MEDS ORDERED: NICOTINE POLACRILEX 2 MG GUM BUC PRN (15:29)
[2021-07-02] MEDS ORDERED: NALOXONE (NARCAN) HCL 4 MG/0.1 ML SPRAY NS PRN (15:29)
[2021-07-02] MEDS ORDERED: MENTHOL/PHENOL 1 EACH UD MM PRN (15:29)
[2021-07-02] MEDS ORDERED: MAGNESIUM CITRATE 300 ML BOTTLE PO PRN (15:29)
[2021-07-02] MEDS ORDERED: MAG HYDROX/AL HYDROX/SIMETH 30 ML UNIT-DOSE CUP PO PRN (15:29)
[2021-07-02] MEDS ORDERED: IBUPROFEN 400 MG TABLET (FP) PO PRN (15:29)
[2021-07-02] MEDS ORDERED: clonazePAM 0.5 MG ODT TABLETS SL PRN (15:29)
[2021-07-02] MEDS ORDERED: MAGNESIUM HYDROX 2400MG/30ML ORAL SUSPENSION 30 ML CUP PO PRN (15:29)
[2021-07-02] MEDS ORDERED: ACETAMINOPHEN 325 MG TABLET (FP) PO PRN ×2 (15:29)
[2021-07-02] MEDS ORDERED: methaDONE HCL 10 MG TABLET (FOR DETOX USE ONLY) PO ONE (16:15)
[2021-07-02] MEDS: THIAMINE HCL 100 MG TABLET (FP) PO SCH (22:15)
[2021-07-02] MEDS: MELATONIN 5 MG TABLETS PO SCH (22:15)
[2021-07-03] MEDS: BISMUTH SUBSALICYLATE 524 MG/30 ML PO PRN ×2 (09:26→14:27)
[2021-07-03] MEDS ORDERED: methaDONE HCL 10 MG TABLET (FOR DETOX USE ONLY) ONE (09:49)
[2021-07-03] MEDS: PRENATAL VITAMINS W/ FOLIC ACID TABLET (FP) PO SCH (10:05)
[2021-07-03] MEDS: ASPIRIN COATED 81 MG TABLET.EC PO SCH (10:06)
[2021-07-03 11:35] LABS: HEMATOCRIT 42.3 % (35.4-49); HEMOGLOBIN 14.2 GM/dL (11.7-16.9); MCH 29.3 pg (25.7-33.7); MCHC 33.6 g/dl (32.0-35.9); MEAN CELL VOLUME 87.2 fl (80-96); MEAN PLT VOLUME 9.3 fl (7.5-11.1); PLATELET COUNT 311 10^3/uL (134-434); RBC 4.85 M/mm3 (4.00-5.60); RDW 15.7 % (11.9-15.9); WHITE BLOOD COUNT 8.1 K/mm3 (4.0-10.0)
[2021-07-03 11:50] LABS: CALCIUM 9.4 mg/dL (8.5-10.1)
[2021-07-03 11:52] LABS: ALBUMIN 3.7 g/dl (3.4-5.0); BLOOD UREA NITROGEN 38.9 mg/dL (7-18)
[2021-07-03 11:54] LABS: CREATININE 1.7 mg/dL (0.55-1.3)
[2021-07-03 11:55] LABS: BILIRUBIN,TOTAL 0.4 mg/dL (0.2-1); TOT PROT 7.1 g/dl (6.4-8.2)
[2021-07-03] MEDS: METHOCARBAMOL 500 MG TABLET PO PRN ×2 (17:39→23:08)
[2021-07-03] MEDS: MELATONIN 5 MG TABLETS PO SCH (22:21)
[2021-07-03] MEDS: THIAMINE HCL 100 MG TABLET (FP) PO SCH (22:21)
[2021-07-04] MEDS ORDERED: P-EPHED 60MG/TRIPROLIDI 2.5MG TABLET PO PRN (08:03)
[2021-07-04] MEDS ORDERED: diazePAM 5 MG TABLET PO PRN (08:03)
[2021-07-04] MEDS ORDERED: ONDANSETRON *ODT* 4 MG TABLET SL PRN (08:04)
[2021-07-04 08:57] VITALS: TEMP 97.3
[2021-07-04 09:19] VITALS: BP 116/65; PULSE 96
[2021-07-04] MEDS ORDERED: NICOTINE 21 MG/24 HOURS TOPICAL PATCH TD SCH (10:00)
[2021-07-04] MEDS ORDERED: methaDONE HCL 10 MG TABLET (FOR DETOX USE ONLY) PO ONE (10:00)
[2021-07-04] MEDS: ASPIRIN COATED 81 MG TABLET.EC PO SCH (10:17)
[2021-07-04] MEDS: PRENATAL VITAMINS W/ FOLIC ACID TABLET (FP) PO SCH (10:19)
[2021-07-06] MEDS ORDERED: methaDONE HCL 10 MG TABLET (FOR DETOX USE ONLY) PO ONE (10:00)
== END 2021-07-04 11:29 | disposition left against medical advice (07) | DRG 770 ==
LOC: YASAS 10:30 → Y3N 15:56
PROVIDERS: ADMIT Allergy & Immunology; ATTEND Allergy & Immunology
PROC: HZ2ZZZZ Detoxification Services for Substance Abuse Treatment (ICD-10-PCS; principal; 2021-07-02)
DX: F11.23 Opioid dependence with withdrawal (principal); F14.10 Cocaine abuse, uncomplicated; F16.10 Hallucinogen abuse, uncomplicated; F17.213 Nicotine dependence, cigarettes, with withdrawal; M89.49 Other hypertrophic osteoarthropathy, multiple sites; I25.10 Atherosclerotic heart disease of native coronary artery without angina pectoris; Z95.5 Presence of coronary angioplasty implant and graft; Z96.652 Presence of left artificial knee joint; Z96.641 Presence of right artificial hip joint
CPT/HCPCS: 36415; 80053; 85027; 86780; 93005; 93010; C9803; J0735; U0003; U0005

== ENCOUNTER 2021-12-05 11:56 | Inpatient (IN) | payer OTHER ==
[2021-12-05] MEDS ORDERED: MENTHOL/PHENOL 1 EACH UD MM PRN (12:39)
[2021-12-05] MEDS ORDERED: ONDANSETRON *ODT* 4 MG TABLET SL PRN (12:39)
[2021-12-05] MEDS ORDERED: NICOTINE 10 MG CARTRIDGE (INHALER) IH PRN (12:39)
[2021-12-05] MEDS ORDERED: IBUPROFEN 400 MG TABLET (FP) PO PRN (12:39)
[2021-12-05] MEDS ORDERED: LOPERAMIDE HCL 2 MG CAPSULE PO PRN (12:39)
[2021-12-05] MEDS ORDERED: MAGNESIUM CITRATE 300 ML BOTTLE PO PRN (12:39)
[2021-12-05] MEDS ORDERED: MAG HYDROX/AL HYDROX/SIMETH 30 ML UNIT-DOSE CUP PO PRN (12:39)
[2021-12-05] MEDS ORDERED: BISMUTH SUBSALICYLATE 524 MG/30 ML PO PRN (12:39)
[2021-12-05] MEDS ORDERED: ACETAMINOPHEN 325 MG TABLET (FP) PO PRN ×2 (12:39)
[2021-12-05] MEDS ORDERED: MAGNESIUM HYDROX 2400MG/30ML ORAL SUSPENSION 30 ML CUP PO PRN (12:39)
[2021-12-05] MEDS ORDERED: cloNIDine HCL 0.1 MG TABLET PO PRN (12:39)
[2021-12-05 13:01] VITALS: BMI 28.1
[2021-12-05] MEDS ORDERED: methaDONE HCL 10 MG TABLET (FOR DETOX USE ONLY) PO ONE (14:00)
[2021-12-05 14:22] LABS: HEMATOCRIT 35.3 % (35.4-49); HEMOGLOBIN 11.4 GM/dL (11.7-16.9); MCH 27.9 pg (25.7-33.7); MCHC 32.2 g/dl (32.0-35.9); MEAN CELL VOLUME 86.7 fl (80-96); MEAN PLT VOLUME 8.7 fl (7.5-11.1); PLATELET COUNT 304 10^3/uL (134-434); RBC 4.08 M/mm3 (4.00-5.60)
[2021-12-05 14:27] LABS: CALCIUM 9.2 mg/dL (8.5-10.1)
[2021-12-05 14:28] LABS: ALBUMIN 3.5 g/dl (3.4-5.0); BLOOD UREA NITROGEN 10.6 mg/dL (7-18)
[2021-12-05 14:33] LABS: BILIRUBIN,TOTAL 0.3 mg/dL (0.2-1); TOT PROT 6.6 g/dl (6.4-8.2)
[2021-12-05] MEDS ORDERED: COLLOIDAL OATMEAL 1 BAR EACH TP PRN (14:37)
[2021-12-05] MEDS: METHOCARBAMOL 500 MG TABLET PO PRN ×2 (15:24→22:46)
[2021-12-05] MEDS: hydrOXYzine PAMOATE 25 MG CAPSULE (FP) PO SCH ×3 (15:24→22:46)
[2021-12-05] MEDS: PRENATAL VITAMINS W/ FOLIC ACID TABLET (FP) PO SCH (15:24)
[2021-12-05] MEDS: NICOTINE 14 MG/24 HOURS TOPICAL PATCH TD SCH (15:26)
[2021-12-05] MEDS: THIAMINE HCL 100 MG TABLET (FP) PO SCH (22:46)
[2021-12-05] MEDS: MELATONIN 5 MG TABLETS PO SCH (22:46)
[2021-12-06] MEDS: hydrOXYzine PAMOATE 25 MG CAPSULE (FP) PO SCH ×5 (06:06→22:34)
[2021-12-06] MEDS ORDERED: methaDONE HCL 10 MG TABLET (FOR DETOX USE ONLY) ONE (09:37)
[2021-12-06] MEDS: PRENATAL VITAMINS W/ FOLIC ACID TABLET (FP) PO SCH (09:55)
[2021-12-06] MEDS: ASPIRIN 81 MG CHEWABLE TABLETS PO SCH (09:55)
[2021-12-06] MEDS: METHOCARBAMOL 500 MG TABLET PO PRN ×2 (09:55→22:34)
[2021-12-06] MEDS: NICOTINE 14 MG/24 HOURS TOPICAL PATCH TD SCH (09:57)
[2021-12-06] MEDS: diazePAM 5 MG TABLET PO PRN ×3 (13:38→22:34)
[2021-12-06] MEDS: THIAMINE HCL 100 MG TABLET (FP) PO SCH (22:34)
[2021-12-06] MEDS: MELATONIN 5 MG TABLETS PO SCH (22:34)
[2021-12-07] MEDS: diazePAM 5 MG TABLET PO PRN ×3 (05:50→22:47)
[2021-12-07] MEDS: hydrOXYzine PAMOATE 25 MG CAPSULE (FP) PO SCH ×5 (05:50→22:45)
[2021-12-07] MEDS ORDERED: methaDONE HCL 10 MG TABLET (FOR DETOX USE ONLY) PO ONE (10:00)
[2021-12-07 10:07] LABS: SARS-CoV-2 NAA Not Detected (Not Detected)
[2021-12-07] MEDS: ASPIRIN 81 MG CHEWABLE TABLETS PO SCH (10:13)
[2021-12-07] MEDS: PRENATAL VITAMINS W/ FOLIC ACID TABLET (FP) PO SCH (10:13)
[2021-12-07] MEDS: NICOTINE 14 MG/24 HOURS TOPICAL PATCH TD SCH (10:14)
[2021-12-07] MEDS: THIAMINE HCL 100 MG TABLET (FP) PO SCH (22:45)
[2021-12-07] MEDS: MELATONIN 5 MG TABLETS PO SCH (22:45)
[2021-12-07] MEDS: METHOCARBAMOL 500 MG TABLET PO PRN (22:46)
[2021-12-08] MEDS: hydrOXYzine PAMOATE 25 MG CAPSULE (FP) PO SCH ×5 (06:27→22:28)
[2021-12-08] MEDS ORDERED: methaDONE HCL 10 MG TABLET (FOR DETOX USE ONLY) ONE (09:13)
[2021-12-08] MEDS: ASPIRIN 81 MG CHEWABLE TABLETS PO SCH (10:31)
[2021-12-08] MEDS: PRENATAL VITAMINS W/ FOLIC ACID TABLET (FP) PO SCH (10:31)
[2021-12-08] MEDS: NICOTINE 14 MG/24 HOURS TOPICAL PATCH TD SCH (10:36)
[2021-12-08] MEDS: diazePAM 5 MG TABLET PO PRN ×2 (14:05→22:31)
[2021-12-08] MEDS: LIDOCAINE 5% TOPICAL PATCH TP SCH (15:29)
[2021-12-08] MEDS: ALBUTEROL SO4 HFA INHALER IH PRN (15:30)
[2021-12-08] MEDS ORDERED: LIDOCAINE PATCH REMOVAL MC SCH (22:00)
[2021-12-08] MEDS ORDERED: BUDESONIDE/FORMETEROL FUMARATE 160/4.5 mcg INHALER IH SCH (22:00)
[2021-12-08] MEDS: MELATONIN 5 MG TABLETS PO SCH (22:28)
[2021-12-08] MEDS: THIAMINE HCL 100 MG TABLET (FP) PO SCH (22:28)
[2021-12-08] MEDS: BUDESONIDE/FORMETEROL FUMARATE 160/4.5 mcg INHALER IH SCH (22:30)
[2021-12-08] MEDS: LIDOCAINE PATCH REMOVAL MC SCH (22:31)
[2021-12-09] MEDS: hydrOXYzine PAMOATE 25 MG CAPSULE (FP) PO SCH ×5 (06:45→22:37)
[2021-12-09] MEDS ORDERED: methaDONE HCL 10 MG TABLET (FOR DETOX USE ONLY) PO ONE (10:00)
[2021-12-09] MEDS: LIDOCAINE 5% TOPICAL PATCH TP SCH (10:03)
[2021-12-09] MEDS: PRENATAL VITAMINS W/ FOLIC ACID TABLET (FP) PO SCH (10:03)
[2021-12-09] MEDS: NICOTINE 14 MG/24 HOURS TOPICAL PATCH TD SCH (10:03)
[2021-12-09] MEDS: BUDESONIDE/FORMETEROL FUMARATE 160/4.5 mcg INHALER IH SCH ×2 (10:04→22:36)
[2021-12-09] MEDS: ASPIRIN 81 MG CHEWABLE TABLETS PO SCH (10:04)
[2021-12-09] MEDS: METHOCARBAMOL 500 MG TABLET PO PRN ×2 (10:05→20:34)
[2021-12-09] MEDS: ALBUTEROL SO4 HFA INHALER IH PRN (17:42)
[2021-12-09] MEDS: MELATONIN 5 MG TABLETS PO SCH (22:36)
[2021-12-09] MEDS: THIAMINE HCL 100 MG TABLET (FP) PO SCH (22:37)
[2021-12-10] MEDS: LIDOCAINE PATCH REMOVAL MC SCH (00:52)
[2021-12-10] MEDS: hydrOXYzine PAMOATE 25 MG CAPSULE (FP) PO SCH (05:56)
[2021-12-10 08:29] VITALS: BP 133/79; PULSE 72; TEMP 97.3
== END 2021-12-10 09:34 | disposition home or self-care (01) | DRG 773 ==
LOC: YASAS 11:56 → Y3N 13:38
PROVIDERS: ADMIT Allergy & Immunology; ATTEND Allergy & Immunology
PROC: HZ2ZZZZ Detoxification Services for Substance Abuse Treatment (ICD-10-PCS; principal; 2021-12-05)
DX: F11.23 Opioid dependence with withdrawal (principal); F16.10 Hallucinogen abuse, uncomplicated; F17.210 Nicotine dependence, cigarettes, uncomplicated; D50.9 Iron deficiency anemia, unspecified; J44.9 Chronic obstructive pulmonary disease, unspecified; I25.10 Atherosclerotic heart disease of native coronary artery without angina pectoris; Z95.5 Presence of coronary angioplasty implant and graft; M15.9 Polyosteoarthritis, unspecified; R73.9 Hyperglycemia, unspecified; M54.50 Low back pain, unspecified; G89.29 Other chronic pain; Z96.641 Presence of right artificial hip joint; Z96.652 Presence of left artificial knee joint
CPT/HCPCS: 36415; 80053; 85027; 86780; 87811; C9803; J0735; Q0162; U0003; U0005